=== PATIENT | male | born 1945 | race Caucasian/White ===

== ENCOUNTER 2016-11-23 09:07 | Inpatient (IN) ==
--- NOTE | 2016-11-23 09:32 | EKG Report ---
Stationary ECG Study [facility] ER Test Date: 11/23/2016 9:26:32 AM Pat Name: GRACE VEGA Department: Room: Gender: M [employer]: : 1945 Requested by: Tyrel Driscoll Order Number: [id number] Reading MD: ROSELYN ORTEGA Intervals Corn Rate: 118 P: 69 AK: 240 QRS: 247 QRSD: 178 T: 67 QT: 399 QTc: 469 Interpretive Statements ELECTRONIC VEN[employer]ICULAR PACEMAKER Electronically Signed On 11-23-16 10:48:03 CDT by ROSELYN ORTEGA [email or web address]
[2016-11-23 09:56] LABS: Basophils # 0.1 10*3/uL (0.0-0.2); Basophils % 0.7 % (0.0-0.8); Eosinophils % 0.6 % (0.00-10.9); Hematocrit 55.9 VOL% (42.0-52.0); Hemoglobin 18.9 GM/DL (14.0-18.0); Immature Granulocytes % 0.3 %; Immature Granulocytes Absolute 0.02 #; Lymphocytes # 1.8 10*3/uL (1.4-4.0); Lymphocytes % 27.2 % (21.2-54.2); Mean Corpuscular HGB Conc 33.8 GM/DL (32-36); Mean Corpuscular Hemoglobin 31 PG (27-34); Mean Corpuscular Volume 90.6 FL (87-102); Monocytes # 0.4 10*3/uL (0.11-0.8); Monocytes % 6.4 % (1.7-12.7); Neutrophils # 4.4 10*3/uL (1.4-7.4); Neutrophils % 64.8 % (38.7-73.9); Platelet Count 221 T/CUMM (130-400); Red Blood Count 6.17 MC/CUMM (3.8-5.5); Red Cell Distribution Width 13.4 % (9.3-17.3); White Blood Count 6.8 T/CUMM (4-12)
[2016-11-23 10:04] LABS: INR 2.7
[2016-11-23] MEDS ORDERED: SODIUM CHLORIDE 0.9% 500 ML IV STA (10:05)
--- NOTE | 2016-11-23 10:07 | XRay Report ---
Portable chest Date: 11/23/2016 Clinical history: Shortness of breath Comparison: 07/30/2016 Technique: Portable AP sitting chest Findings: The heart is borderline in size with prior median sternotomy. Stable left subclavian atrioventricular permanent pacemaker. Chronic scarring in the lungs with reduced parenchymal findings. Calcified granulomata/nodes with degenerative changes. Prior multilevel kyphoplasty. Impression: Status post median sternotomy with chronic scarring. Left subclavian atrioventricular permanent pacemaker. Reduced parenchymal findings with evidence of old healed granulomatous disease. No acute cardiopulmonary pathology. Multilevel kyphoplasty. PROCEDURE INTERPRETED AT [facility] DEPARTMENT OF RADIOLOGY Final Report Signed by: Dr. Iram Benitez
[2016-11-23 10:10] LABS: PT Patient Result 30.8 SECS
[2016-11-23 10:40] LABS: Bilirubin,Total 0.8 MG/DL (0.2-1.0); Calcium 10.1 MG/DL (8.5-10.1); Osmolality,Calculated 277.5 MOS/KG (273-304); Potassium 4.4 MMOL/L (3.5-5.1); Thyroid Stimulating Hormone 0.933 uIU/ml (0.358-3.74); Total Protein 7.8 G/DL (6.4-8.3); Troponin I Only 0.048 NG/ML (0.00-0.045)
--- NOTE | 2016-11-23 11:28 | Emergency Department Note ---
Jono Waite Brittany, am scribing for, and in the presence of, Rosalio Salcido MD 09:35. Omari Waite Doug C, MD, personally performed the services described in this documentation, ascribed by Yarelis De La Cruz in my presence, and it is both accurate and complete . Arrival - Arrival Chief Complaint: Arrhythmia/Palpitations Stated Complaint: SHOULDER AND BACK PROBLEMS AND HEART SWEATS CHILLS ED Nursing Triage Note: Elevated HR with HX of A fib - pt reports that he has also been having chills and body aches Mode of Arrival: Wheelchair Limitations: No Limitations Source: Patient, RN Notes Reviewed Time Seen by Provider: 11/23/16 09:21 - History of Present Illness HPI Narrative: Patient 68-year-old white male who comes to the emergency room complaining of tachycardia. Patient states this started yesterday though has had off and on for some time now. Patient states became persistent yesterday evening and is having some heaviness in his shoulders. He denies any chest pain but he did become diaphoretic. He denied any associated nausea, vomiting or severe shortness of breath. Patient states she has had similar symptoms in the past when he was having a myocardial infarction. He denies radiation of pain to his neck or his arms. He has had atrial fibrillation in the past and has had prior bypass surgery. Onset (ago): day(s) (1) Consistency: constant Allergies/Adverse Reactions: Allergies Allergy/AdvReac Type Severity Reaction Status Date / Time acetaminophen [From Lortab] AdvReac Anxiety Verified 01/19/15 12:50 aspirin AdvReac Gastrointestinal Verified 01/19/15 12:50 Upset duloxetine [From Cymbalta] AdvReac Agitated Verified 11/10/16 08:28 hydrocodone [From Lortab] AdvReac Anxiety Verified 01/19/15 12:50 NSAIDS (Non-Steroidal AdvReac Gastrointestinal Verified 01/19/15 12:50 Anti-Inflamma Upset Zolpidem [From Ambien] AdvReac Anxiety Verified 01/19/15 12:50 Home Medications: Home Medications Medication Instructions Recorded Confirmed Type Amitriptyline HCl 150 mg PO QPM 07/28/16 11/23/16 History Clopidogrel [Plavix] 75 mg PO DAILY@1830 07/28/16 11/23/16 History Digoxin [Digitek] 0.125 mcg PO DAILY@1230 07/28/16 11/23/16 History Oxycodone HCl/Acetaminophen 1 each PO QID PRN 07/28/16 11/23/16 History [Oxycodone-Acetaminophen 10-325] Sotalol [Betapace] 160 mg PO BID@0630,1830 07/28/16 11/23/16 History Warfarin Sodium 2.5 mg PO MO 07/28/16 11/23/16 History Warfarin Sodium 5 mg PO DAILY 07/28/16 11/23/16 History dilTIAZem HCl [Cartia XT] 240 mg PO DAILY@1230 07/28/16 11/23/16 History Methocarbamol 500 mg PO TID PRN 11/23/16 11/23/16 History Nystatin [Nystatin Oral Susp] 500,000 unit SWISH/SWAL QID 11/23/16 11/23/16 History Review of System - Review of System 12 point system: reviewed and no additional remarkable complaints except as stated - Review of System Constitutional: Present: chills, diaphoresis Eyes: Absent: vision change Head/Ears/Nose/Throat: Absent: nasal drainage, sore throat Respiratory: Absent: respiratory distress Cardiovascular: Present: other (elevated heart rate). Absent: chest pain Gastrointestinal: Absent: abdominal pain, nausea, vomiting, diarrhea, constipation Genitourinary male: Absent: urgency, dysuria, frequency Musculoskeletal: Present: other (shoulder pain). Absent: arm pain, back pain, leg pain, neck pain Skin: Absent: rash Neurological: Absent: headache Psychiatric: Absent: anxiety, depression Hematological/Lymphatic: Absent: easy bleeding, easy bruising Medical,Surgical,& Family Hx - Medical History Cardio: History of: Cardiac Dysrhythmia (Afib), Hypertension, [place], Pacemaker Neurology: No history of: Seizures Musculoskeletal: History of: Back/Neck Problems (kyphoplasty done previously) - Surgical History Cardiac Surgeries: Sugical HX of: Cardiac Surgery (CABG) Orthopedic Surgeries: Surgical HX of;: Total Knee Replacement (right) - Family History Family History: Reports;: Family Heart Disease (Mother had Pacemaker placement) - Social History Smoking Status: Former smoker Frequency of Alcohol Use: None Type of Drug Use: None Marital Status: Lives With:: Spouse Functional capacity: independent ambulation Exam Vital Signs: Vital Signs Temperature 97.9 F 11/23/16 09:56 Pulse Rate 118 H 11/23/16 09:56 Respiratory Rate 20 11/23/16 09:56 Blood Pressure 90/62 11/23/16 09:56 O2 Sat by Pulse Oximetry 97 11/23/16 09:15 - General General appearance: alert, in no apparent distress - Head Head exam: Present: atraumatic, normocephalic, normal inspection - Eye Eye exam: Present: normal appearance, PERRL, EOMI - ENT ENT exam: Present: normal exam, normal oropharynx - Neck Neck exam: Present: normal inspection, full ROM, trachea midline - Chest Chest inspection: Present: normal inspection, symmetric chest wall rise - Respiratory Respiratory exam: Present: normal lung sounds bilaterally - Cardiovascular Cardiovascular exam: Present: regular rate, irregular rhythm, normal heart sounds. Absent: normal rhythm - Abdominal Exam Abdominal exam: Present: soft, normal bowel sounds. Absent: distention, tenderness - Extremities Exam Extremities exam: Present: normal inspection. Absent: pedal edema - Back Exam Back exam: Present: normal inspection - Neurological Exam Neurological exam: Present: alert, oriented X3, CN II-XII intact. Absent: motor sensory deficit - Psychiatric Psychiatric exam: Present: normal affect, normal mood - Skin Skin exam: Present: warm, dry. Absent: diaphoresis Course Course Narrative: Patient's clinical presentation, laboratory and radiographic findings were discussed with Dr. Niki Gabriel. He will see the patient here in the emergency room and evaluate patient for admission. Results - Labs CBC & BMP: 11/23/16 09:35 11/23/16 09:35 Lab Results: I have reviewed the patients labs Labs: Laboratory Tests 11/23/16 09:35 WBC 6.8 RBC 6.17 H Hgb 18.9 H Hct 55.9 H Plt Count 221 Laboratory Tests 11/23/16 09:35 INR 2.7 PT Patient/Control Mix 30.8 D Laboratory Tests 11/23/16 11/23/16 09:35 09:35 Sodium 139 Potassium 4.4 Chloride 104 Carbon Dioxide 30 Anion Gap 9.4 BUN 15 Creatinine 1.30 GFR Calculation 65 BUN/Creatinine Ratio 11.00 Glucose 94 Calculated Osmolality 277.5 Calcium 10.1 Magnesium 2.6 H Total Bilirubin 0.80 AST 22 ALT 40 Alkaline Phosphatase 88 Troponin I 0.048 H Total Protein 7.8 Albumin 4.0 Globulin 3.8 H Albumin/Globulin Ratio 1.0 L TSH 3rd Generation 0.933 - EKG EKG results: interpreted by [facility] EKG shows: tachycardia (Paced rhythm at 118 bpm) - Diagnostic Findings Procedure: Chest x-ray: report reviewed by me (Status post median sternotomy with chronic scarring. Left subclavian atrioventricular permanent pacemaker. Reduced parenchymal findings with evidence of old healed granulomatous disease. No acute cardiopulmonary pathology. Multilevel kyphoplasty.) Disposition Clinical Impression: Chest pain Case discussed with: patient Disposition: Still a Patient Condition: Guarded Time of Disposition: 11:28
[2016-11-23] MEDS ORDERED: MORPHINE 2 MG/1 ML SYRINGE IV PRN (11:29)
[2016-11-23] MEDS ORDERED: ONDANSETRON 4 MG/2 ML VIAL IV PRN (11:29)
[2016-11-23] MEDS ORDERED: ZALEPLON 5 MG CAPSULE PO PRN (11:29)
--- NOTE | 2016-11-23 11:36 | Cardiology History & Physical ---
Assessment and Plan - Time spent with patient Time spent with patient: Greater than 30 minutes (Examination, chart review documentation and orders) (1) Dehydration Status: Acute Assessment and plan: I think volume contraction is the problem. Volume contraction is not an option in his electronic health record therefore I was forced to provide supply the wrong diagnosis of dehydration. Only option electronic health record is volume contraction by diuretics and that is not the diagnosis. The patient appears to be volume contracted by exam and by labs. He has been having excess sweating which I think is due to withdrawal from his medications. We will put in the ICU because of his A. fib with RVR and his elevated heart rate he has discomfort in his shoulders that I do not think represents ischemia but certainly could therefore we will monitor in the ICU because of his hypotension his pressures in the 90s. Hopefully with volume expansion he will respond and do well. He has a mildly elevated troponin and we will follow those serially. Current Visit: Yes (2) Atrial fibrillation with RVR Status: Acute Current Visit: Yes (3) Benzodiazepine withdrawal Status: Acute Current Visit: Yes Qualifiers: Complication of substance-induced condition: with unspecified complication Qualified Code(s): F13.239 - Sedative, hypnotic or anxiolytic dependence with withdrawal, unspecified (4) Chronic pain Status: Chronic Current Visit: Yes Qualifiers: Chronic pain type: chronic pain syndrome Qualified Code(s): G89.4 - Chronic pain syndrome (5) Coronary artery disease Status: Chronic Current Visit: Yes Qualifiers: Coronary Disease-Associated Artery/Lesion type: bypass graft [place] vs. transplanted heart: [place] heart Associated angina: without angina Qualified Code(s): I25.810 - Atherosclerosis of coronary artery bypass graft(s) without angina pectoris (6) Chronic anticoagulation Status: Chronic Current Visit: Yes History of Present Illness Chief complaint: Shoulder heaviness, sweating and A. fib with RVR (chronic) History of present illness: Mr. Cabral is a 70 year old male who has lots of chronic back pain and is recently had some issues with back pain and the significant adjustments in his medications with some being held specifically the increase in his Elavil and abrupt cessation of his Klonopin. The patient's called me earlier this morning stating that he was "sweating" constantly and had A. fib with RVR that was bouncing around and she was unable to control. She states the right is been as high as 130 she did not over the phone that he had chest pain. He has coronary artery disease therefore I was concerned that he may be having underlying ischemia and recommended they come to the emergency room. He came to the emergency room was evaluated by Dr. Rosalio Salcido and was found to have silva zone troponin and A. fib with rapid ventricular response with no diagnostic EKG changes. He also appears to be extremely volume contracted with a low blood pressure and A. fib with RVR rates in the 120s-130s. I discussed with Dr. Salcido via the phone and came to evaluate the patient. During the examination the consistently answered the questions for the patient stating that "he does not know what is going on." She states that he started getting sick after a back injection by Dr. Sherman approximately 5 weeks ago and his medications were adjusted he is also sometime in the interim this not clear to me had abrupt cessation of his Klonopin. He has had A. fib with RVR since but has had permanent A. fib. Rates have been going up and down he says he felt bad all day Thursday he had "a good day." And then yesterday and today he just feels weak and washed out with high heart rate. He has not experienced any chest pain but has had a heaviness in both shoulders that he states gets better whenever he takes skeletal muscle relaxants. He has not taken a nitroglycerin. He has not experienced chest pain nausea. He has had extreme diaphoresis states that he gets ringing wet and then went out of the air conditioner he is freezing. He denies any fevers or chills except when wet and under the air conditioner. Home Medications Medication Instructions Recorded Confirmed Type Amitriptyline HCl 150 mg PO QPM 07/28/16 11/23/16 History Clopidogrel [Plavix] 75 mg PO DAILY@182907/28/16 11/23/16 History Digoxin [Digitek] 0.125 mcg PO DAILY@1230 07/28/16 11/23/16 History Oxycodone HCl/Acetaminophen 1 each PO QID PRN 07/28/16 11/23/16 History [Oxycodone-Acetaminophen 10-325] Sotalol [Betapace] 160 mg PO BID@0630,182907/28/16 11/23/16 History Warfarin Sodium 2.5 mg PO MO 07/28/16 11/23/16 History Warfarin Sodium 5 mg PO DAILY 07/28/16 11/23/16 History dilTIAZem HCl [Cartia XT] 240 mg PO DAILY@1230 07/28/16 11/23/16 History Methocarbamol 500 mg PO TID PRN 11/23/16 11/23/16 History Nystatin [Nystatin Oral Susp] 500,000 unit SWISH/SWAL QID 11/23/16 11/23/16 History Allergies Allergy/AdvReac Type Severity Reaction Status Date / Time acetaminophen [From Lortab] AdvReac Anxiety Verified 01/19/15 12:50 aspirin AdvReac Gastrointestinal Verified 01/19/15 12:50 Upset duloxetine [From Cymbalta] AdvReac Agitated Verified 11/10/16 08:28 hydrocodone [From Lortab] AdvReac Anxiety Verified 01/19/15 12:50 NSAIDS (Non-Steroidal AdvReac Gastrointestinal Verified 01/19/15 12:50 Anti-Inflamma Upset Zolpidem [From Ambien] AdvReac Anxiety Verified 01/19/15 12:50 - Constitutional Constitutional: Present: daytime sleepiness, excessive sweating, fatigue, lethargy, malaise, night sweats, weakness. Absent: anorexia, chills - EENT Eyes: Absent: blurry vision, diplopia Ears: Absent: decreased hearing, ear discharge Nose, mouth and throat: Absent: dysphagia, epistaxis, headache(s), hoarseness, lip swelling, nasal congestion, neck mass, neck pain, sinus pressure, sore throat - Cardiovascular Cardiovascular: Present: as per HPI, dyspnea, dyspnea on exertion, lightheadedness, palpitations. Absent: chest pain at rest, chest pain with activity, edema, orthopnea - Respiratory Respiratory: Present: dyspnea, dyspnea on exertion. Absent: cough, wheezing, snoring, change in phlegm color - Gastrointestinal Gastrointestinal: Absent: abdominal pain, bloating, change in bowel habits, dyspepsia, dysphagia, fecal incontinence, melena, nausea, vomiting, jaundice - Genitourinary Genitourinary: Absent: difficulty urinating, dysuria, flank pain, hematuria, nocturia, scrotal swelling, testicular pain - Musculoskeletal Musculoskeletal: Present: arthralgias, back pain, muscle weakness. Absent: joint swelling, limited range of motion - Neurological Neurological: Absent: abnormal gait, abnormal speech, confusion, convulsions, disequilibrium, dizziness, frequent falls, headache(s), numbness, syncope, tremor(s) - Psychiatric Psychiatric: Present: anxiety, depression. Absent: difficulty concentrating, homicidal ideation - Endocrine Endocrine: Present: heat intolerance. Absent: cold intolerance Medical,Surgical,& Family Hx - Medical History Cardio: History of: Cardiac Dysrhythmia (Afib), Hypertension, [place], Pacemaker Neurology: No history of: Seizures Musculoskeletal: History of: Back/Neck Problems (kyphoplasty done previously) - Surgical History Cardiac Surgeries: Sugical HX of: Cardiac Surgery (CABG) Orthopedic Surgeries: Surgical HX of;: Total Knee Replacement (right) - Family History Family History: Reports;: Family Heart Disease (Mother had Pacemaker placement) - Social History Smoking Status: Former smoker Frequency of Alcohol Use: None Type of Drug Use: None Marital Status: Lives With:: Spouse Functional capacity: independent ambulation Cardiology Physical Exam - Constitutional Vitals: Vital Signs Temp Pulse Resp BP Pulse Ox 97.9 F 118 H 20 90/62 97 11/23/16 09:56 11/23/16 09:56 11/23/16 09:56 11/23/16 09:56 11/23/16 09:15 Intake and Output 11/22/16 11/23/16 11/23/16 23:59 07:59 15:59 Other: Weight 77.564 kg Patient Weight 11/23/16 23:59 Weight 77.564 kg General appearance: normal weight, other (He is anxious) - Head Head exam: Present: normal inspection - Eye Eye exam: Present: EOMI - ENT ENT exam: Present: other (His membranes are extremely dry he does not have JVD) - Neck Neck exam: Present: normal inspection - Respiratory Respiratory exam: Present: clear to auscultation bilaterally - Cardiovascular Cardiovascular exam: Present: irregular rhythm (Rates about 120), tachycardia - GI/Abdominal GI/Abdominal exam: Present: normal bowel sounds - Extremities Exam Extremities exam: Present: normal inspection - Back Exam Back exam: Present: normal inspection - Neurological Exam Neurological exam: Present: alert, oriented X3, CN II-XII intact, other (He has point tenderness over T6-7 but his states his kyphoplasty was lower. The spine has good movement. There is no fluctuance or erythema) - Psychiatric Psychiatric exam: Present: anxious, depressed - Skin Skin exam: Present: normal color, warm, dry Result/EKG - Labs CBC & BMP: 11/23/16 09:35 11/23/16 09:35 Labs: Laboratory Results - last 24 hr 11/23/16 11/23/16 11/23/16 09:35 09:35 09:35 WBC 6.8 RBC 6.17 H Hgb 18.9 H Hct 55.9 H MCV 90.6 MCH 31 MCHC 33.8 RDW 13.4 Plt Count 221 MPV 11.0 Neut % (Auto) 64.8 Lymph % (Auto) 27.2 [place] % (Auto) 6.4 Eos % (Auto) 0.6 Baso % (Auto) 0.7 Neut # (Auto) 4.4 Lymph # (Auto) 1.8 [place] # (Auto) 0.4 Eos # (Auto) 0.0 Baso # (Auto) 0.1 Immature Gran % 0.3 Nucleated RBC % 0.0 Immature Gran # 0.02 Nucleated RBCs # 0.00 INR 2.7 PT Patient/Control Mix 30.8 D Sodium Potassium Chloride Carbon Dioxide Anion Gap BUN Creatinine GFR Calculation BUN/Creatinine Ratio Glucose Calculated Osmolality Calcium Magnesium 2.6 H Total Bilirubin AST ALT Alkaline Phosphatase Troponin I Total Protein Albumin Globulin Albumin/Globulin Ratio TSH 3rd Generation 11/23/16 09:35 WBC RBC Hgb Hct MCV MCH MCHC RDW Plt Count MPV Neut % (Auto) Lymph % (Auto) [place] % (Auto) Eos % (Auto) Baso % (Auto) Neut # (Auto) Lymph # (Auto) [place] # (Auto) Eos # (Auto) Baso # (Auto) Immature Gran % Nucleated RBC % Immature Gran # Nucleated RBCs # INR PT Patient/Control Mix Sodium 139 Potassium 4.4 Chloride 104 Carbon Dioxide 30 Anion Gap 9.4 BUN 15 Creatinine 1.30 GFR Calculation 65 BUN/Creatinine Ratio 11.00 Glucose 94 Calculated Osmolality 277.5 Calcium 10.1 Magnesium Total Bilirubin 0.80 AST 22 ALT 40 Alkaline Phosphatase 88 Troponin I 0.048 H Total Protein 7.8 Albumin 4.0 Globulin 3.8 H Albumin/Globulin Ratio 1.0 L TSH 3rd Generation 0.933 - EKG EKG results: interpreted by me (Ventricular paced rhythm) Quality Measures - VTE Contraindication to Pharmacological VTE Prophylaxis: Already on Theraputic Agent , No Prophylaxis Needed
[2016-11-23] MEDS: DILTIAZEM CD 240 MG CAPSULE PO SCH (12:55)
[2016-11-23] MEDS: DIGOXIN 0.125 MG TABLET PO SCH (12:56)
[2016-11-23] MEDS: oxyCODONE/ACETAMINOPHEN 5-325 MG TABLET PO PRN (12:56)
[2016-11-23] MEDS: SODIUM CHLORIDE 0.9% 1,000 ML IV SCH ×2 (12:59→20:51)
[2016-11-23] MEDS: NYSTATIN 500,000 UNIT/5 ML UDCUP SWISH/SWAL SCH ×3 (13:08→21:59)
[2016-11-23] MEDS: CLOPIDOGREL 75 MG TABLET PO SCH (19:38)
[2016-11-23] MEDS: SOTALOL 80 MG TABLET PO SCH (19:38)
[2016-11-23] MEDS: AMITRIPTYLINE 50 MG TABLET PO SCH (20:48)
[2016-11-23] MEDS: clonazePAM 0.5 MG TABLET PO SCH (21:58)
[2016-11-24] MEDS: oxyCODONE/ACETAMINOPHEN 5-325 MG TABLET PO PRN ×3 (00:04→17:59)
[2016-11-24 01:22] LABS: Apearance,Urine CLEAR (Clear); Bilirubin,Urine Negative (Negative); Blood, Urine Small mg/dL (Negative); Glucose,Urine (UA) Negative (Negative); Ketones,Urine Negative (Negative); Mucus,Urine Occasional /LPF (Occasional); Nitrite,Urine Negative (Negative); Protein,Urine Negative; RBC,Urine 15 /HPF (0-4); Urine Color Yellow (Yellow); Urine Specific Gravity 1.018 (1.001-1.035); Urine Urobilinogen < 2.0 EU/DL (0.2-1.0); WBC,Urine <1 /HPF (0-6)
[2016-11-24] MEDS: SODIUM CHLORIDE 0.9% 1,000 ML IV SCH ×3 (04:51→21:36)
[2016-11-24 05:21] LABS: Basophils # 0.1 10*3/uL (0.0-0.2); Basophils % 0.7 % (0.0-0.8); Eosinophils # 0.1 10*3/uL (0.0-0.87); Eosinophils % 1.1 % (0.00-10.9); Hematocrit 48.1 VOL% (42.0-52.0); Immature Granulocytes % 0.3 %; Immature Granulocytes Absolute 0.02 #; Lymphocytes # 2.2 10*3/uL (1.4-4.0); Lymphocytes % 28.9 % (21.2-54.2); Mean Corpuscular HGB Conc 33.7 GM/DL (32-36); Mean Corpuscular Hemoglobin 31 PG (27-34); Mean Corpuscular Volume 91.8 FL (87-102); Mean Platelet Volume 11.3 FL (9.6-12.0); Monocytes # 0.6 10*3/uL (0.11-0.8); Monocytes % 7.8 % (1.7-12.7); Neutrophils # 4.6 10*3/uL (1.4-7.4); Neutrophils % 61.2 % (38.7-73.9); Red Blood Count 5.24 MC/CUMM (3.8-5.5); Red Cell Distribution Width 13.2 % (9.3-17.3); White Blood Count 7.4 T/CUMM (4-12)
[2016-11-24 05:45] LABS: Hemoglobin 16.2 GM/DL (14.0-18.0)
[2016-11-24 05:46] LABS: Platelet Count 172 T/CUMM (130-400)
[2016-11-24 05:48] LABS: Calcium 8.6 MG/DL (8.5-10.1); Osmolality,Calculated 283.1 MOS/KG (273-304)
[2016-11-24] MEDS: SOTALOL 80 MG TABLET PO SCH ×2 (06:30→17:57)
--- NOTE | 2016-11-24 08:05 | Cardiology Progress Note ---
Cardiology - PN: Subj Interval history: Cardiology note 70-year-old man admitted with recurrent paroxysmal atrial relation, dehydration and chronic back pain with probable overmedication. Patient had been taking Klonopin 4 times daily. Awake and alert and comfortable this morning telemetry shows atrial fib ventricular rate 90-100 O2 sat 95% on 2 L cannula Blood pressure 130/82 Decreased breath sounds but clear Irregular rhythm no murmur Abdomen soft No leg edema Lab data White count 7.4 hemoglobin 16.2 hematocrit 48.1 Sodium 142 potassium 4.0 chloride 109 CO2 26 BUN down to 14 creatinine down to 1.0 Pro time 30.8 INR 2.7 Impression Recurrent paroxysmal atrial fibrillation Dehydration Chronic back pain Overmedication CAD Chronic anticoagulation Plan Transfer to telemetry Sotalol 160 mg twice daily Diltiazem 240 mg daily and digoxin 0.125 mg daily Warfarin daily 500 mg 3 times daily methocarbamol Normal saline hydration Cardioversion if he does not convert chemically Findings and plan discussed with patient and his Exam (Progress Note) - Constitutional Vitals: Period Temp Pulse Resp BP Sys/Parker Pulse Ox Last 24 Hr 97 F-97.9 F 100-127 12-26 88-129/49-93 94-100 Result/EKG - Labs CBC & BMP: 11/24/16 04:13 11/24/16 04:13 Labs: Laboratory Results - last 24 hr 11/23/16 11/23/16 11/23/16 09:35 09:35 09:35 WBC 6.8 RBC 6.17 H Hgb 18.9 H Hct 55.9 H MCV 90.6 MCH 31 MCHC 33.8 RDW 13.4 Plt Count 221 MPV 11.0 Neut % (Auto) 64.8 Lymph % (Auto) 27.2 Cavalier % (Auto) 6.4 Eos % (Auto) 0.6 Baso % (Auto) 0.7 Neut # (Auto) 4.4 Lymph # (Auto) 1.8 Cavalier # (Auto) 0.4 Eos # (Auto) 0.0 Baso # (Auto) 0.1 Immature Gran % 0.3 Nucleated RBC % 0.0 Immature Gran # 0.02 Nucleated RBCs # 0.00 INR 2.7 PT Patient/Control Mix 30.8 D Sodium Potassium Chloride Carbon Dioxide Anion Gap BUN Creatinine GFR Calculation BUN/Creatinine Ratio Glucose Calculated Osmolality Calcium Magnesium 2.6 H Total Bilirubin AST ALT Alkaline Phosphatase Troponin I Total Protein Albumin Globulin Albumin/Globulin Ratio TSH 3rd Generation Urine Color Urine Appearance Urine pH Ur Specific [place] Urine Protein Urine Glucose (UA) Urine Ketones Urine Blood Urine Nitrate Urine Bilirubin Urine Urobilinogen Urine Leukocytes Urine RBC Urine WBC Urine Mucus Ur Culture Indicated? 11/23/16 11/23/16 11/23/16 09:35 13:33 17:25 WBC RBC Hgb Hct MCV MCH MCHC RDW Plt Count MPV Neut % (Auto) Lymph % (Auto) [place]ier % (Auto) Eos % (Auto) Baso % (Auto) Neut # (Auto) Lymph # (Auto) [place]ier # (Auto) Eos # (Auto) Baso # (Auto) Immature Gran % Nucleated RBC % Immature Gran # Nucleated RBCs # INR PT Patient/Control Mix Sodium 139 Potassium 4.4 Chloride 104 Carbon Dioxide 30 Anion Gap 9.4 BUN 15 Creatinine 1.30 GFR Calculation 65 BUN/Creatinine Ratio 11.00 Glucose 94 Calculated Osmolality 277.5 Calcium 10.1 Magnesium Total Bilirubin 0.80 AST 22 ALT 40 Alkaline Phosphatase 88 Troponin I 0.048 H 0.049 H 0.049 H Total Protein 7.8 Albumin 4.0 Globulin 3.8 H Albumin/Globulin Ratio 1.0 L TSH 3rd Generation 0.933 Urine Color Urine Appearance Urine pH Ur Specific [place] Urine Protein Urine Glucose (UA) Urine Ketones Urine Blood Urine Nitrate Urine Bilirubin Urine Urobilinogen Urine Leukocytes Urine RBC Urine WBC Urine Mucus Ur Culture Indicated? 11/23/16 11/24/16 11/24/16 19:32 00:00 04:13 WBC 7.4 RBC 5.24 Hgb 16.2 D Hct 48.1 MCV 91.8 MCH 31 MCHC 33.7 RDW 13.2 Plt Count 172 D MPV 11.3 Neut % (Auto) 61.2 Lymph % (Auto) 28.9 Cavalier % (Auto) 7.8 Eos % (Auto) 1.1 Baso % (Auto) 0.7 Neut # (Auto) 4.6 Lymph # (Auto) 2.2 Cav[place]ier # (Auto) 0.6 Eos # (Auto) 0.1 Baso # (Auto) 0.1 Immature Gran % 0.3 Nucleated RBC % 0.0 Immature Gran # 0.02 Nucleated RBCs # 0.00 INR PT Patient/Control Mix Sodium Potassium Chloride Carbon Dioxide Anion Gap BUN Creatinine GFR Calculation BUN/Creatinine Ratio Glucose Calculated Osmolality Calcium Magnesium Total Bilirubin AST ALT Alkaline Phosphatase Troponin I 0.053 H Total Protein Albumin Globulin Albumin/Globulin Ratio TSH 3rd Generation Urine Color Yellow Urine Appearance Clear Urine pH 5.0 Ur Specific [place] 1.018 Urine Protein Negative Urine Glucose (UA) Negative Urine Ketones Negative Urine Blood Small Urine Nitrate Negative Urine Bilirubin Negative Urine Urobilinogen < 2.0 H Urine Leukocytes Negative Urine RBC 15 Urine WBC <1 Urine Mucus Occasional Ur Culture Indicated? Results to follow 11/24/16 04:13 WBC RBC Hgb Hct MCV MCH MCHC RDW Plt Count MPV Neut % (Auto) Lymph % (Auto) [place]ier % (Auto) Eos % (Auto) Baso % (Auto) Neut # (Auto) Lymph # (Auto) [place]ier # (Auto) Eos # (Auto) Baso # (Auto) Immature Gran % Nucleated RBC % Immature Gran # Nucleated RBCs # INR PT Patient/Control Mix Sodium 142 Potassium 4.0 Chloride 109 H Carbon Dioxide 26 Anion Gap 11.0 BUN 14 Creatinine 1.00 GFR Calculation 88 BUN/Creatinine Ratio 14.00 Glucose 91 Calculated Osmolality 283.1 Calcium 8.6 Magnesium Total Bilirubin AST ALT Alkaline Phosphatase Troponin I Total Protein Albumin Globulin Albumin/Globulin Ratio TSH 3rd Generation Urine Color Urine Appearance Urine pH Ur Specific [place] Urine Protein Urine Glucose (UA) Urine Ketones Urine Blood Urine Nitrate Urine Bilirubin Urine Urobilinogen Urine Leukocytes Urine RBC Urine WBC Urine Mucus Ur Culture Indicated? Quality Measures - VTE Contraindication to Pharmacological VTE Prophylaxis: Already on Theraputic Agent , No Prophylaxis Needed
[2016-11-24] MEDS: METHOCARBAMOL 500 MG TABLET PO PRN (09:10)
[2016-11-24] MEDS: NYSTATIN 500,000 UNIT/5 ML UDCUP SWISH/SWAL SCH ×4 (09:10→21:42)
[2016-11-24] MEDS: clonazePAM 0.5 MG TABLET PO SCH ×2 (09:11→21:41)
[2016-11-24] MEDS: WARFARIN 5 MG TABLET PO SCH (09:12)
--- NOTE | 2016-11-24 09:42 | XRay Report ---
Exam: XR chest 1V portable Date: 11/24/2016 4:00 AM Indication: Shortness of breath Comparison: 11/23/2016 Technical: AP portable Findings: Cardiomegaly present with sternotomy wires and cardiac pacer device and a left-sided approach with atrial ventricular leads. External cardiac leads are present. Platelike atelectatic change present in the right base with a small area of nodularity in the left base and some atelectatic change present. Previous vertebral plasty at the thoracolumbar junction. No pneumothorax Impression: 1. Cardiomegaly without decompensation 2. Bibasilar atelectatic change and small some nodularity in the left base 3. Stable persistent cardiac pacing device and previous sternotomy PROCEDURE INTERPRETED AT [facility] DEPARTMENT OF RADIOLOGY Final Report Signed by: Dr. Marcus Patiño
[2016-11-24] MEDS ORDERED: WARFARIN 2.5 MG TABLET PO SCH (11:31)
[2016-11-24] MEDS: DIGOXIN 0.125 MG TABLET PO SCH (11:59)
[2016-11-24] MEDS: DILTIAZEM CD 240 MG CAPSULE PO SCH (12:02)
[2016-11-24] MEDS: CLOPIDOGREL 75 MG TABLET PO SCH (17:58)
[2016-11-24] MEDS: AMITRIPTYLINE 50 MG TABLET PO SCH (18:34)
[2016-11-25] MEDS: oxyCODONE/ACETAMINOPHEN 5-325 MG TABLET PO PRN (02:00)
[2016-11-25] MEDS: METHOCARBAMOL 500 MG TABLET PO PRN (02:03)
[2016-11-25 05:50] LABS: Basophils # 0.1 10*3/uL (0.0-0.2); Basophils % 0.8 % (0.0-0.8); Eosinophils # 0.1 10*3/uL (0.0-0.87); Eosinophils % 2.3 % (0.00-10.9); Hematocrit 46.5 VOL% (42.0-52.0); Hemoglobin 15.8 GM/DL (14.0-18.0); Immature Granulocytes % 0.3 %; Immature Granulocytes Absolute 0.02 #; Lymphocytes # 2.2 10*3/uL (1.4-4.0); Lymphocytes % 35.8 % (21.2-54.2); Mean Corpuscular Hemoglobin 31 PG (27-34); Mean Corpuscular Volume 91.4 FL (87-102); Mean Platelet Volume 11.1 FL (9.6-12.0); Monocytes # 0.5 10*3/uL (0.11-0.8); Monocytes % 7.7 % (1.7-12.7); Neutrophils # 3.3 10*3/uL (1.4-7.4); Neutrophils % 53.1 % (38.7-73.9); Platelet Count 150 T/CUMM (130-400); Red Blood Count 5.09 MC/CUMM (3.8-5.5); Red Cell Distribution Width 13.1 % (9.3-17.3); White Blood Count 6.2 T/CUMM (4-12)
[2016-11-25 06:18] LABS: Calcium 8.6 MG/DL (8.5-10.1); Osmolality,Calculated 280.1 MOS/KG (273-304)
[2016-11-25 06:20] LABS: Calcium 8.6 MG/DL (8.5-10.1); Magnesium 2.1 MG/DL (1.8-2.4)
[2016-11-25] MEDS: SODIUM CHLORIDE 0.9% 1,000 ML IV SCH (06:22)
[2016-11-25] MEDS: SOTALOL 80 MG TABLET PO SCH (06:54)
[2016-11-25] MEDS: clonazePAM 0.5 MG TABLET PO SCH (08:32)
[2016-11-25] MEDS: WARFARIN 5 MG TABLET PO SCH (08:33)
[2016-11-25] MEDS: NYSTATIN 500,000 UNIT/5 ML UDCUP SWISH/SWAL SCH (08:33)
--- NOTE | 2016-11-25 09:31 | Cardiology Progress Note ---
Cardiology - PN: Subj Interval history: Cardiology note 70-year-old man admitted with dehydration overmedication with benzodiazepines and recurrent atrial fibrillation. Awake alert and feels much better today. Patient converted chemically back to atrial pacing. Blood pressure 126/80. O2 sat 96% on room air. Regular rhythm no gallop Clear lungs. Abdomen soft benign. No leg edema. Impression Dehydration Chronic back pain with analgesic requirement Recurrent paroxysmal atrial fibrillation converted chemically back to atrial pacing Chronic anticoagulation Status post dual-chamber pacemaker Benzodiazepine overmedication CAD Plan Home today Sotalol 160 mg twice daily Cardizem 240 mg daily and digoxin 0.125 mg daily Warfarin daily Office visit with EKG already scheduled with Dr. Hunt for November 28 Patient is followed by Dr. Sherman at the pain clinic and will need office visit with him soon. Findings and plan discussed with patient and with his Jonna. Exam (Progress Note) - Constitutional Vitals: Period Temp Pulse Resp BP Sys/Parker Pulse Ox Last 24 Hr 96.5 F-97.7 F 68-112 16-20 102-116/62-85 94-98 Result/EKG - Labs CBC & BMP: 11/25/16 05:26 11/25/16 05:26 Labs: Laboratory Results - last 24 hr 11/25/16 11/25/16 11/25/16 05:26 05:26 05:26 WBC 6.2 RBC 5.09 Hgb 15.8 Hct 46.5 MCV 91.4 MCH 31 MCHC 34.0 RDW 13.1 Plt Count 150 MPV 11.1 Neut % (Auto) 53.1 Lymph % (Auto) 35.8 Gregg % (Auto) 7.7 Eos % (Auto) 2.3 Baso % (Auto) 0.8 Neut # (Auto) 3.3 Lymph # (Auto) 2.2 [place]gg # (Auto) 0.5 Eos # (Auto) 0.1 Baso # (Auto) 0.1 Immature Gran % 0.3 Nucleated RBC % 0.0 Immature Gran # 0.02 Nucleated RBCs # 0.00 Sodium 143 142 Potassium 4.0 4.0 Chloride 110 H 110 H Carbon Dioxide 25 26 Anion Gap 12.0 10.0 BUN 10 10 Creatinine 0.80 0.80 GFR Calculation 106 106 BUN/Creatinine Ratio 12.00 12.00 Glucose 76 79 Calculated Osmolality 282.0 280.1 Calcium 8.6 8.6 Magnesium 2.1 Quality Measures - VTE Contraindication to Pharmacological VTE Prophylaxis: Already on Theraputic Agent , No Prophylaxis Needed
--- NOTE | 2016-11-25 10:03 | Discharge Summary ---
Hospital Course - Hospital Course Hospital Course: Outside Sales Account Representative: Dr. Philip Hunt PCP: Dr. Peña Mr. Cabral, 70-year-old male patient with a past medical history of chronic back pain, coronary artery disease, degenerative joint disease, diverticulosis, dyslipidemia, anxiety and paroxysmal atrial fibrillation (chronically anticoagulated with Coumadin). Status post cardiac pacemaker. Patient presented to [facility] November 23, 2016 with recurrent paroxysmal atrial fibrillation with rapid ventricular response, probable benzodiazepine withdrawal and silva zone troponin without diagnostic EKG changes. Patient without complaints of chest pain, heaviness and tightness. Patient has lots of chronic back pain and has recently been having issues. Therefore, significant adjustments in his medications were recently done. Specifically, his Elavil was increased and his Klonopin was abruptly discontinued. Per patient's report, he has been taking Klonopin 4 times daily. This hospitalization, patient's Klonopin was decreased to 0.25 mg p.o. twice daily. He will be given a written prescription for this in order to avoid withdrawal. I would defer further management of patient's anxiety to his primary care provider, Dr. Peña. Patient was admitted to the ICU as he was mildly hypotensive upon admission due to volume contraction. He was monitored in the ICU overnight and hydrated gently. He tolerated this well and subsequently was transferred up to telemetry unit in stable condition. No adjustments in his cardiac medications were needed as patient spontaneously converted back to normal sinus rhythm on his own. Currently, patient is atrial pacing, heart rates in the 60s. INR November 23 was noted to be therapeutic at 2.7. He will have his INR rechecked at his follow-up appointment with Dr. Hunt on November 28. Patient has been given a follow-up appointment with Dr. Hunt on November 28. At this appointment he will have the following completed: INR, BMP and EKG. Patient is anxious for discharge home. Having felt that he has not maximal medical therapy, he will be discharged home in stable condition per Of note, patient does have history of dyslipidemia. However, he is allergic to statins and Zetia. At this time, patient will not be discharged home with a lipid-lowering agent for this reason. I will defer further management of this to patient's primary arboriculture instructor, Dr. Hunt. Patient will be discharged home on his preadmission Coumadin dosages. He will have his INR rechecked Thursday afternoon at the [facility] [place] [facility] along with BMP and EKG. Patient verbalized understanding of discharge instructions and discharge medications. - Time spent with patient Time with patient DS: Greater than 30 minutes Diagnosis - Discharge Diagnosis (1) Paroxysmal atrial fibrillation Status: Chronic (2) Dyslipidemia Status: Chronic (3) Atrial fibrillation with RVR Status: Resolved (4) Benzodiazepine withdrawal Status: Acute (5) Dehydration Status: Resolved (6) Chronic anticoagulation Status: Chronic (7) Chronic pain Status: Chronic (8) Coronary artery disease Status: Chronic Specialty Discharge - Follow Up or Referrals Follow up with: Killian Sherman MD [Physician] - 11/28/16 7:45 am Madhu Hunt MD [Physician] - 11/28/16 9:40 am (With EKG, BMP and INR.) Luis Fernando Peña DO [Primary Care Provider] - 2 Weeks Discharge Plan - Discharge Data Disposition: Disch To Home/Self Care Condition at Discharge: Stable Discharge Diet: heart healthy Activity: resume usual activities as tolerated Hygiene: no restrictions Weight Bearing at Discharge: weight bear as tolerated Driving: not until seen by doctor Contact your physician if you experience:: fever over 101, Difficulty voiding, Redness or swelling, Nausea/Vomiting, Shortness of breath, Bleeding, pain uncontrolled by pain medications - Discharge Medications New clonazePAM TAB [KlonoPIN] 0.25 mg PO BID tablet Continue Warfarin Sodium 5 mg PO DAILY Digoxin [Digitek] 0.125 mcg PO DAILY@1230 dilTIAZem HCl [Cartia XT] 240 mg PO DAILY@1230 Clopidogrel [Plavix] 75 mg PO DAILY@1830 Amitriptyline HCl 150 mg PO QPM Oxycodone HCl/Acetaminophen [Oxycodone-Acetaminophen 10-325] 1 each PO QID PRN PRN Reason: Pain Warfarin Sodium 2.5 mg PO MO Methocarbamol 500 mg PO TID PRN PRN Reason: MUSCLE SPASMS Sotalol [Betapace] 160 mg PO BID@0630,1830 Nystatin [Nystatin Oral Susp] 500,000 unit SWISH/SWAL QID - Follow Up or Referral Follow Up: Killian Sherman MD [Physician] - 11/28/16 7:45 am Madhu Hunt MD [Physician] - 11/28/16 9:40 am - Forms/Instructions Exam - Constitutional Vitals: Period Temp Pulse Resp BP Sys/Parker Pulse Ox Last 24 Hr 96.5 F-97.7 F 68-112 16-20 102-116/62-85 94-98 Exam: General: Appears well with no apparent distress. Pleasant and cooperative. Appears comfortable. HEENT: PERRL, normocephalic, atraumatic. Mucous membranes moist. No jaundice noted. Conjunctiva moist and clear, sclerae anicteric Neck: No JVD/HJR, no thyromegaly or lymphadenopathy noted. No carotid bruit appreciated Cardiac: Regular rate and rhythm. No murmur rub or gallop. Lungs: Clear to auscultation without accessory muscle use to assist the respiratory pattern. Not requiring oxygen. Abdomen: Soft, bowel sounds normoactive. Nontender and nondistended. Extremities: No clubbing, cyanosis noted. No edema noted. Upper extremity pulses 2+. Lower extremity pulses 2+. Capillary refill less than 3 seconds. Skin: No unusual lesions or rashes. No skin breakdown appreciated. Neuro: Awake, alert and oriented 3. Moves all extremities well without hemiparesis or paralysis. No essential tremor is appreciated. Discharge Results Procedures and tests throughout hospitalization: Pending Orders 11/24/16 Urine Culture Routine 11/26/16 04:00 BMP w/ Mg [Basic Metabolic Panel w/Mg] IN AM CBC [Comp Blood Count Auto Diff] IN AM 11/27/16 04:00 BMP w/ Mg [Basic Metabolic Panel w/Mg] IN AM CBC [Comp Blood Count Auto Diff] IN AM 11/28/16 04:00 BMP w/ Mg [Basic Metabolic Panel w/Mg] IN AM CBC [Comp Blood Count Auto Diff] IN AM 11/29/16 04:00 CBC [Comp Blood Count Auto Diff] IN AM Labs on day of discharge: Labs from last 24 hours 11/25/16 11/25/16 11/25/16 05:26 05:26 05:26 WBC 6.2 RBC 5.09 Hgb 15.8 Hct 46.5 MCV 91.4 MCH 31 MCHC 34.0 RDW 13.1 Plt Count 150 MPV 11.1 Neut % (Auto) 53.1 Lymph % (Auto) 35.8 Glenn % (Auto) 7.7 Eos % (Auto) 2.3 Baso % (Auto) 0.8 Neut # (Auto) 3.3 Lymph # (Auto) 2.2 Glenn # (Auto) 0.5 Eos # (Auto) 0.1 Baso # (Auto) 0.1 Immature Gran % 0.3 Nucleated RBC % 0.0 Immature Gran # 0.02 Nucleated RBCs # 0.00 Sodium 142 143 Potassium 4.0 4.0 Chloride 110 H 110 H Carbon Dioxide 26 25 Anion Gap 10.0 12.0 BUN 10 10 Creatinine 0.80 0.80 GFR Calculation 106 106 BUN/Creatinine Ratio 12.00 12.00 Glucose 79 76 Calculated Osmolality 280.1 282.0 Calcium 8.6 8.6 Magnesium 2.1 Preliminary micro results at discharge 11/24/16 Unknown Urine Culture - Preliminary Urine,Catheterized No Growth at 24 hours. DS: Provider Date of admission: 11/23/16 11:29 Primary care physician: Luis Fernando Peña DO Attending physician on admission: Niki Gabriel DO Consults: 11/23/16 17:03 Consult to Dietitian [CONS] Routine Reason for Dietitian: Supplements and/or Snacks Discharging clinician: Mara Lagos NP Expected date of discharge: 11/25/16
[2016-11-25] MEDS ORDERED: SOTALOL 80 MG TABLET PO ONE (10:59)
[2016-11-25 11:31] VITALS: BP 142/96
== END 2016-11-25 12:52 | disposition home or self-care (01) | DRG 897 ==
LOC: N.ED 09:07 → N.EDINP 11:29 → N.CC 12:22 → N.TELES 11-24 10:33
PROVIDERS: ADMIT Internal Medicine Cardiovascular Disease; ATTEND Internal Medicine Cardiovascular Disease

== ENCOUNTER 2017-09-29 17:57 | Observation (INO) ==
[2017-09-29] MEDS ORDERED: DOCUSATE SODIUM 100 MG CAPSULE PO PRN ×2 (18:38→18:41)
[2017-09-29] MEDS ORDERED: ONDANSETRON 4 MG/2 ML VIAL IV PRN ×2 (18:38→18:41)
[2017-09-29] MEDS ORDERED: MAGNESIUM SULF RIDER 2 GM in PREMIX 1 EACH IV PRN ×2 (18:38→18:41)
[2017-09-29] MEDS ORDERED: ACETAMINOPHEN 325 MG TABLET PO PRN ×2 (18:38→18:41)
[2017-09-29] MEDS ORDERED: MAGNESIUM SULF RIDER 4 GM in PREMIX 1 EACH IV PRN ×2 (18:38→18:41)
[2017-09-29] MEDS ORDERED: ZALEPLON 5 MG CAPSULE PO PRN (18:41)
[2017-09-29] MEDS ORDERED: NITROGLYCERIN SL 0.4 MG TABLET SL PRN (18:47)
[2017-09-29] MEDS ORDERED: oxyCODONE/ACETAMINOPHEN 5-325 MG TABLET PO PRN (18:47)
[2017-09-29] MEDS ORDERED: MAGNESIUM HYDROXIDE SUSP 30 ML UDCUP PO PRN (18:53)
[2017-09-29] MEDS ORDERED: diphenhydrAMINE CAP 25 MG CAPSULE PO PRN (18:53)
[2017-09-29] MEDS ORDERED: NON-FORMULARY MEDICATION (Testosterone Enanthate [Testosterone Enanthate] 200 MG) IM SCH (19:00)
[2017-09-29 20:16] LABS: Basophils % 0.6 % (0.0-0.8); Eosinophils # 0.1 10*3/uL (0.0-0.87); Eosinophils % 1.8 % (0.00-10.9); Hematocrit 44.9 VOL% (42.0-52.0); Hemoglobin 14.8 GM/DL (14.0-18.0); Immature Granulocytes % 0.4 %; Immature Granulocytes Absolute 0.03 #; Lymphocytes # 1.7 10*3/uL (1.4-4.0); Lymphocytes % 24.4 % (21.2-54.2); Mean Corpuscular Hemoglobin 30 PG (27-34); Mean Corpuscular Volume 89.6 FL (87-102); Mean Platelet Volume 11.6 FL (9.6-12.0); Monocytes # 0.6 10*3/uL (0.11-0.8); Monocytes % 8.7 % (1.7-12.7); Neutrophils # 4.6 10*3/uL (1.4-7.4); Neutrophils % 64.1 % (38.7-73.9); Platelet Count 169 T/CUMM (130-400); Red Blood Count 5.01 MC/CUMM (3.8-5.5); Red Cell Distribution Width 13.6 % (9.3-17.3); White Blood Count 7.1 T/CUMM (4-12)
[2017-09-29 20:36] LABS: Calcium 9.4 MG/DL (8.5-10.1); Osmolality,Calculated 278.3 MOS/KG (273-304); Potassium 3.7 MMOL/L (3.5-5.1); Thyroid Stimulating Hormone 1.53 uIU/ml (0.358-3.74)
[2017-09-29 20:45] LABS: INR 3.9
[2017-09-29 20:47] LABS: PT Patient Result 39.1 SECS
[2017-09-29] MEDS ORDERED: AMITRIPTYLINE 75 MG TABLET PO SCH (21:00)
[2017-09-30 05:55] LABS: Basophils % 0.8 % (0.0-0.8); Eosinophils # 0.1 10*3/uL (0.0-0.87); Eosinophils % 1.9 % (0.00-10.9); Hematocrit 42.1 VOL% (42.0-52.0); Hemoglobin 13.7 GM/DL (14.0-18.0); Immature Granulocytes % 0.4 %; Immature Granulocytes Absolute 0.02 #; Lymphocytes # 1.4 10*3/uL (1.4-4.0); Lymphocytes % 26.2 % (21.2-54.2); Mean Corpuscular HGB Conc 32.5 GM/DL (32-36); Mean Corpuscular Hemoglobin 29 PG (27-34); Mean Platelet Volume 11.4 FL (9.6-12.0); Monocytes # 0.5 10*3/uL (0.11-0.8); Monocytes % 10.2 % (1.7-12.7); Neutrophils # 3.1 10*3/uL (1.4-7.4); Neutrophils % 60.5 % (38.7-73.9); Platelet Count 145 T/CUMM (130-400); Red Blood Count 4.73 MC/CUMM (3.8-5.5); Red Cell Distribution Width 13.6 % (9.3-17.3); White Blood Count 5.2 T/CUMM (4-12)
[2017-09-30 06:20] LABS: Albumin 3.2 G/DL (3.4-5.0); Bilirubin,Total 0.4 MG/DL (0.2-1.0); Calcium 8.8 MG/DL (8.5-10.1); Potassium 3.9 MMOL/L (3.5-5.1); Total Protein 6.1 G/DL (6.4-8.3)
[2017-09-30] MEDS ORDERED: SOTALOL 80 MG TABLET PO SCH (06:30)
[2017-09-30] MEDS ORDERED: DILTIAZEM CD 240 MG CAPSULE PO SCH (09:00)
[2017-09-30] MEDS ORDERED: PANTOPRAZOLE 40 MG TABLET PO SCH ×2 (09:00)
[2017-09-30 11:55] VITALS: BP 123/64
[2017-09-30] MEDS ORDERED: WARFARIN 5 MG TABLET PO SCH (18:00)
[2017-09-30] MEDS ORDERED: CLOPIDOGREL 75 MG TABLET PO SCH (18:30)
[2017-10-01] MEDS ORDERED: WARFARIN 5 MG TABLET PO SCH (18:00)
== END 2017-09-30 14:15 | disposition home or self-care (01) ==
LOC: N.ED 17:57 → N.EDINP 17:57 → N.TELES 20:21
PROVIDERS: ADMIT Internal Medicine Clinical Cardiac Electrophysiology; ATTEND Internal Medicine Clinical Cardiac Electrophysiology

== ENCOUNTER 2018-01-31 23:07 | Observation (INO) ==
[2018-01-31 23:57] LABS: Basophils # 0.1 10*3/uL (0.0-0.2); Basophils % 0.4 % (0.0-0.8); Eosinophils # 0.1 10*3/uL (0.0-0.87); Eosinophils % 0.7 % (0.00-10.9); Hematocrit 51.4 VOL% (42.0-52.0); Hemoglobin 16.8 GM/DL (14.0-18.0); Immature Granulocytes % 0.4 %; Immature Granulocytes Absolute 0.05 #; Lymphocytes # 1.6 10*3/uL (1.4-4.0); Lymphocytes % 13.6 % (21.2-54.2); Mean Corpuscular HGB Conc 32.7 GM/DL (32-36); Mean Corpuscular Hemoglobin 28 PG (27-34); Mean Corpuscular Volume 86.5 FL (87-102); Mean Platelet Volume 10.5 FL (9.6-12.0); Monocytes # 0.7 10*3/uL (0.11-0.8); Neutrophils # 9.5 10*3/uL (1.4-7.4); Neutrophils % 78.9 % (38.7-73.9); Platelet Count 211 T/CUMM (130-400); Red Blood Count 5.94 MC/CUMM (3.8-5.5); Red Cell Distribution Width 15.4 % (9.3-17.3); White Blood Count 12.1 T/CUMM (4-12)
[2018-02-01 00:03] LABS: INR 1.7; PT Patient Result 18.1 SECS; Partial Thromboplastin Time 30.8 SECS (0-40)
[2018-02-01 00:14] LABS: Albumin 4.4 G/DL (3.4-5.0); Bilirubin,Total 1.4 MG/DL (0.2-1.0); Calcium 10.3 MG/DL (8.5-10.1); Osmolality,Calculated 284.3 MOS/KG (273-304); Potassium 4.5 MMOL/L (3.5-5.1); Total Protein 8.4 G/DL (6.4-8.3)
[2018-02-01] MEDS ORDERED: ENOXAPARIN 30 MG/0.3 ML SYRINGE SUBCUT STA (00:53)
[2018-02-01] MEDS ORDERED: MAGNESIUM SULF RIDER 2 GM in PREMIX 1 EACH IV PRN (00:54)
[2018-02-01] MEDS ORDERED: ONDANSETRON 4 MG/2 ML VIAL IV PRN (00:54)
[2018-02-01] MEDS ORDERED: MAGNESIUM SULF RIDER 4 GM in PREMIX 1 EACH IV PRN (00:54)
[2018-02-01] MEDS: DEXTROSE 5% NACL 0.9% 1,000 ML IV SCH ×3 (01:44→17:36)
[2018-02-01] MEDS ORDERED: ENOXAPARIN 80 MG/0.8 ML SYRINGE SUBCUT ONE (01:44)
[2018-02-01 05:10] LABS: Basophils % 0.5 % (0.0-0.8); Eosinophils % 0.2 % (0.00-10.9); Hematocrit 45.9 VOL% (42.0-52.0); Hemoglobin 14.8 GM/DL (14.0-18.0); Immature Granulocytes % 0.4 %; Immature Granulocytes Absolute 0.03 #; Lymphocytes # 1.2 10*3/uL (1.4-4.0); Lymphocytes % 14.9 % (21.2-54.2); Mean Corpuscular HGB Conc 32.2 GM/DL (32-36); Mean Corpuscular Hemoglobin 28 PG (27-34); Mean Corpuscular Volume 86.6 FL (87-102); Mean Platelet Volume 10.7 FL (9.6-12.0); Monocytes # 0.5 10*3/uL (0.11-0.8); Monocytes % 5.7 % (1.7-12.7); Neutrophils # 6.3 10*3/uL (1.4-7.4); Neutrophils % 78.3 % (38.7-73.9); Platelet Count 188 T/CUMM (130-400); Red Cell Distribution Width 15.3 % (9.3-17.3); White Blood Count 8.1 T/CUMM (4-12)
[2018-02-01 05:29] LABS: Albumin 3.7 G/DL (3.4-5.0); Bilirubin,Total 1.2 MG/DL (0.2-1.0); Calcium 9.2 MG/DL (8.5-10.1); Osmolality,Calculated 282.4 MOS/KG (273-304); Potassium 3.9 MMOL/L (3.5-5.1); Total Protein 7.4 G/DL (6.4-8.3)
[2018-02-01 05:30] LABS: Troponin I 0.087 NG/ML (0.00-0.045)
[2018-02-01] MEDS ORDERED: NITROGLYCERIN SL 0.4 MG TABLET SL PRN (07:47)
[2018-02-01] MEDS ORDERED: tiZANidine 4 MG TABLET PO PRN (07:47)
[2018-02-01 07:56] LABS: Troponin I 0.086 NG/ML (0.00-0.045)
[2018-02-01] MEDS ORDERED: CYANOCOBALAMIN 1000 MCG/1 ML VIAL IM SCH (08:00)
[2018-02-01] MEDS ORDERED: EVOLOCUMAB 140 MG SQ SCH (08:00)
[2018-02-01 10:47] LABS: Troponin I 0.079 NG/ML (0.00-0.045)
[2018-02-01] MEDS: TAMSULOSIN 0.4 MG CAPSULE PO SCH ×2 (11:06→21:02)
[2018-02-01] MEDS: SOTALOL 80 MG TABLET PO SCH ×2 (11:06→21:03)
[2018-02-01] MEDS: oxyCODONE/ACETAMINOPHEN 5-325 MG TABLET PO PRN ×2 (11:07→21:07)
[2018-02-01] MEDS: DILTIAZEM CD 240 MG CAPSULE PO SCH ×2 (11:08→21:02)
[2018-02-01] MEDS: PANTOPRAZOLE 40 MG TABLET PO SCH (11:08)
[2018-02-01] MEDS: POLYCARBOPHIL 625 MG TABLET PO SCH ×2 (11:08→21:02)
[2018-02-01] MEDS ORDERED: DIGOXIN 0.125 MG TABLET PO SCH (12:00)
[2018-02-01] MEDS ORDERED: ENOXAPARIN 80 MG/0.8 ML SYRINGE SUBCUT SCH (12:00)
[2018-02-01 12:11] LABS: Hepatitis A Ab IgM Quant 0.26 Index; Hepatitis A Ab IgM Result Negative (Negative); Hepatitis B Core IgM Quant < 0.05 Index; Hepatitis B Core IgM Result Negative (Negative); Hepatitis B Surface Ag Quant 0.19 Index; Hepatitis B Surface Ag Result Negative (Negative); Hepatitis C Virus Ab Quant 0.03 Index; Hepatitis C Virus Ab Result Negative (Negative)
[2018-02-01] MEDS ORDERED: WARFARIN 2.5 MG TABLET PO SCH (18:00)
[2018-02-01] MEDS: CLOPIDOGREL 75 MG TABLET PO SCH (21:02)
[2018-02-01] MEDS: AMITRIPTYLINE 75 MG TABLET PO SCH (21:03)
[2018-02-02] MEDS: DEXTROSE 5% NACL 0.9% 1,000 ML IV SCH ×3 (02:29→18:55)
[2018-02-02 05:16] LABS: Basophils % 0.8 % (0.0-0.8); Eosinophils # 0.2 10*3/uL (0.0-0.87); Eosinophils % 3.4 % (0.00-10.9); Hematocrit 43.9 VOL% (42.0-52.0); Immature Granulocytes % 0.2 %; Immature Granulocytes Absolute 0.01 #; Lymphocytes # 1.6 10*3/uL (1.4-4.0); Lymphocytes % 29.1 % (21.2-54.2); Mean Corpuscular HGB Conc 31.9 GM/DL (32-36); Mean Corpuscular Hemoglobin 28 PG (27-34); Mean Corpuscular Volume 88.9 FL (87-102); Mean Platelet Volume 10.6 FL (9.6-12.0); Monocytes # 0.5 10*3/uL (0.11-0.8); Monocytes % 9.4 % (1.7-12.7); Neutrophils % 57.1 % (38.7-73.9); Platelet Count 163 T/CUMM (130-400); Red Blood Count 4.94 MC/CUMM (3.8-5.5); Red Cell Distribution Width 15.5 % (9.3-17.3); White Blood Count 5.3 T/CUMM (4-12)
[2018-02-02 05:47] LABS: Albumin 3.2 G/DL (3.4-5.0); Bilirubin,Direct 0.21 MG/DL (0.0-0.20); Bilirubin,Indirect 0.7 MG/DL (0.0-1.0); Bilirubin,Total 0.9 MG/DL (0.2-1.0); Calcium 8.5 MG/DL (8.5-10.1); Osmolality,Calculated 278.3 MOS/KG (273-304); Potassium 4.1 MMOL/L (3.5-5.1); Total Protein 6.8 G/DL (6.4-8.3)
[2018-02-02] MEDS: TAMSULOSIN 0.4 MG CAPSULE PO SCH ×2 (09:24→21:08)
[2018-02-02] MEDS: SOTALOL 80 MG TABLET PO SCH ×2 (09:24→21:08)
[2018-02-02] MEDS: DILTIAZEM CD 240 MG CAPSULE PO SCH ×2 (09:24→21:08)
[2018-02-02] MEDS: PANTOPRAZOLE 40 MG TABLET PO SCH (09:25)
[2018-02-02] MEDS: POLYCARBOPHIL 625 MG TABLET PO SCH ×2 (09:25→21:08)
[2018-02-02] MEDS: oxyCODONE/ACETAMINOPHEN 5-325 MG TABLET PO PRN (09:29)
[2018-02-02] MEDS: DIGOXIN 0.125 MG TABLET PO SCH (13:07)
[2018-02-02] MEDS ORDERED: WARFARIN 5 MG TABLET PO SCH (18:00)
[2018-02-02] MEDS: AMITRIPTYLINE 75 MG TABLET PO SCH (21:08)
[2018-02-02] MEDS: CLOPIDOGREL 75 MG TABLET PO SCH (21:08)
[2018-02-03 04:40] LABS: Basophils # 0.1 10*3/uL (0.0-0.2); Basophils % 0.9 % (0.0-0.8); Eosinophils # 0.2 10*3/uL (0.0-0.87); Eosinophils % 2.7 % (0.00-10.9); Hematocrit 44.9 VOL% (42.0-52.0); Hemoglobin 14.5 GM/DL (14.0-18.0); Immature Granulocytes % 0.4 %; Immature Granulocytes Absolute 0.02 #; Lymphocytes # 1.8 10*3/uL (1.4-4.0); Lymphocytes % 32.5 % (21.2-54.2); Mean Corpuscular HGB Conc 32.3 GM/DL (32-36); Mean Corpuscular Hemoglobin 28 PG (27-34); Mean Corpuscular Volume 87.4 FL (87-102); Mean Platelet Volume 10.6 FL (9.6-12.0); Monocytes # 0.5 10*3/uL (0.11-0.8); Monocytes % 9.1 % (1.7-12.7); Neutrophils % 54.4 % (38.7-73.9); Platelet Count 170 T/CUMM (130-400); Red Blood Count 5.14 MC/CUMM (3.8-5.5); Red Cell Distribution Width 15.3 % (9.3-17.3); White Blood Count 5.5 T/CUMM (4-12)
[2018-02-03 04:48] LABS: INR 1.7; PT Patient Result 17.7 SECS
[2018-02-03 04:50] LABS: Calcium 8.8 MG/DL (8.5-10.1); Osmolality,Calculated 278.3 MOS/KG (273-304); Potassium 3.7 MMOL/L (3.5-5.1)
[2018-02-03] MEDS: DEXTROSE 5% NACL 0.9% 1,000 ML IV SCH (06:56)
[2018-02-03] MEDS: PANTOPRAZOLE 40 MG TABLET PO SCH (08:52)
[2018-02-03] MEDS: SOTALOL 80 MG TABLET PO SCH (08:53)
[2018-02-03] MEDS: DILTIAZEM CD 240 MG CAPSULE PO SCH (08:53)
[2018-02-03] MEDS: POLYCARBOPHIL 625 MG TABLET PO SCH (08:53)
[2018-02-03] MEDS: TAMSULOSIN 0.4 MG CAPSULE PO SCH (08:53)
[2018-02-03] MEDS ORDERED: cloNIDine 0.1 MG TABLET PO PRN (10:17)
[2018-02-03] MEDS: DIGOXIN 0.125 MG TABLET PO SCH (14:29)
[2018-02-03 16:16] VITALS: BP 158/75
== END 2018-02-03 17:30 | disposition home or self-care (01) ==
LOC: N.ED 23:07 → N.EDINP 23:07 → N.TELES 02-01 01:21
PROVIDERS: ADMIT Internal Medicine Cardiovascular Disease; ATTEND Internal Medicine Cardiovascular Disease

== ENCOUNTER 2018-02-15 11:10 | Inpatient (IN) ==
[2018-02-15] MEDS ORDERED: HYDROmorphone 2 MG/1 ML VIAL IV STA (13:23)
[2018-02-15] MEDS ORDERED: SODIUM CHLORIDE 0.9% 500 ML IV STA (13:23)
[2018-02-15] MEDS ORDERED: ONDANSETRON 4 MG/2 ML VIAL IV STA (13:23)
[2018-02-15] MEDS ORDERED: ALUM/MAG/SIMETH/LIDO VISC 1:1 30 ML BOTTLE PO STA (13:23)
[2018-02-15] MEDS ORDERED: PANTOPRAZOLE 40 MG VIAL IV STA (13:23)
[2018-02-15 13:58] LABS: Basophils # 0.1 10*3/uL (0.0-0.2); Basophils % 0.5 % (0.0-0.8); Eosinophils % 0.3 % (0.00-10.9); Hematocrit 53.4 VOL% (42.0-52.0); Hemoglobin 17.8 GM/DL (14.0-18.0); Immature Granulocytes % 0.4 %; Immature Granulocytes Absolute 0.06 #; Lymphocytes % 6.9 % (21.2-54.2); Mean Corpuscular HGB Conc 33.3 GM/DL (32-36); Mean Corpuscular Hemoglobin 29 PG (27-34); Mean Corpuscular Volume 86.3 FL (87-102); Mean Platelet Volume 11.1 FL (9.6-12.0); Monocytes # 0.7 10*3/uL (0.11-0.8); Monocytes % 5.4 % (1.7-12.7); Neutrophils # 11.8 10*3/uL (1.4-7.4); Neutrophils % 86.5 % (38.7-73.9); Platelet Count 207 T/CUMM (130-400); Red Blood Count 6.19 MC/CUMM (3.8-5.5); White Blood Count 13.7 T/CUMM (4-12)
[2018-02-15 14:10] LABS: Albumin 4.2 G/DL (3.4-5.0); Bilirubin,Total 0.7 MG/DL (0.2-1.0); Calcium 10.6 MG/DL (8.5-10.1); Osmolality,Calculated 277.4 MOS/KG (273-304); Potassium 4.9 MMOL/L (3.5-5.1); Total Protein 8.3 G/DL (6.4-8.3)
[2018-02-15 14:59] LABS: Apearance,Urine CLEAR (Clear); Bilirubin,Urine Negative (Negative); Blood, Urine Negative (Negative); Glucose,Urine (UA) Negative (Negative); Ketones,Urine Negative (Negative); Mucus,Urine Occasional /LPF (Occasional); Nitrite,Urine Negative (Negative); Protein,Urine Negative; RBC,Urine <1 /HPF (0-4); Urine Color Yellow (Yellow); Urine Specific Gravity 1.008 (1.001-1.035); Urine Urobilinogen < 2.0 EU/DL (0.2-1.0); WBC,Urine <1 /HPF (0-6)
[2018-02-15] MEDS ORDERED: ONDANSETRON 4 MG/2 ML VIAL IV PRN (16:03)
[2018-02-15] MEDS ORDERED: NITROGLYCERIN SL 0.4 MG TABLET SL PRN (16:07)
[2018-02-15] MEDS ORDERED: oxyCODONE/ACETAMINOPHEN 5-325 MG TABLET PO PRN (16:07)
[2018-02-15 16:14] LABS: INR 2.8
[2018-02-15 16:16] LABS: PT Patient Result 28.1 SECS
[2018-02-15] MEDS: HYDROmorphone 2 MG/1 ML VIAL IV PRN ×2 (16:37→23:08)
[2018-02-15] MEDS: SODIUM CHLORIDE 0.9% 1,000 ML IV SCH (18:09)
[2018-02-15] MEDS: TAMSULOSIN 0.4 MG CAPSULE PO SCH (22:09)
[2018-02-15] MEDS: POLYCARBOPHIL 625 MG TABLET PO SCH (22:10)
[2018-02-15] MEDS: AMITRIPTYLINE 75 MG TABLET PO SCH (22:12)
[2018-02-15] MEDS: SOTALOL 80 MG TABLET PO SCH (22:12)
[2018-02-16 05:40] LABS: Basophils % 0.3 % (0.0-0.8); Eosinophils # 0.1 10*3/uL (0.0-0.87); Eosinophils % 0.7 % (0.00-10.9); Hematocrit 45.6 VOL% (42.0-52.0); Immature Granulocytes % 0.3 %; Immature Granulocytes Absolute 0.03 #; Lymphocytes # 1.7 10*3/uL (1.4-4.0); Lymphocytes % 15.9 % (21.2-54.2); Mean Corpuscular HGB Conc 32.2 GM/DL (32-36); Mean Corpuscular Hemoglobin 29 PG (27-34); Mean Corpuscular Volume 88.4 FL (87-102); Mean Platelet Volume 10.9 FL (9.6-12.0); Monocytes # 0.7 10*3/uL (0.11-0.8); Monocytes % 6.6 % (1.7-12.7); Neutrophils # 8.2 10*3/uL (1.4-7.4); Neutrophils % 76.2 % (38.7-73.9); Platelet Count 166 T/CUMM (130-400); Red Blood Count 5.16 MC/CUMM (3.8-5.5); White Blood Count 10.7 T/CUMM (4-12)
[2018-02-16 05:57] LABS: Hemoglobin 14.7 GM/DL (14.0-18.0)
[2018-02-16 06:06] LABS: Calcium 8.5 MG/DL (8.5-10.1); Osmolality,Calculated 270.8 MOS/KG (273-304); Potassium 4.5 MMOL/L (3.5-5.1); Risk Ratio 2.66; Thyroid Stimulating Hormone 1.34 uIU/ml (0.358-3.74)
[2018-02-16] MEDS: SODIUM CHLORIDE 0.9% 1,000 ML IV SCH ×2 (07:36→21:05)
[2018-02-16] MEDS: PANTOPRAZOLE 40 MG TABLET PO SCH (08:14)
[2018-02-16] MEDS: POLYCARBOPHIL 625 MG TABLET PO SCH ×2 (08:14→21:05)
[2018-02-16] MEDS: TAMSULOSIN 0.4 MG CAPSULE PO SCH ×2 (08:14→21:05)
[2018-02-16] MEDS: ENOXAPARIN 40 MG/0.4 ML SYRINGE SUBCUT SCH (08:15)
[2018-02-16] MEDS: SOTALOL 80 MG TABLET PO SCH ×2 (11:27→21:05)
[2018-02-16] MEDS: HYDROmorphone 2 MG/1 ML VIAL IV PRN (11:31)
[2018-02-16] MEDS: DIGOXIN 0.125 MG TABLET PO SCH (15:23)
[2018-02-16] MEDS: AMITRIPTYLINE 75 MG TABLET PO SCH (21:05)
[2018-02-17 05:25] LABS: Basophils % 0.5 % (0.0-0.8); Eosinophils # 0.1 10*3/uL (0.0-0.87); Eosinophils % 1.4 % (0.00-10.9); Hematocrit 40.1 VOL% (42.0-52.0); Hemoglobin 12.9 GM/DL (14.0-18.0); Immature Granulocytes % 0.3 %; Immature Granulocytes Absolute 0.03 #; Lymphocytes # 1.4 10*3/uL (1.4-4.0); Lymphocytes % 15.9 % (21.2-54.2); Mean Corpuscular HGB Conc 32.2 GM/DL (32-36); Mean Corpuscular Hemoglobin 28 PG (27-34); Mean Corpuscular Volume 87.9 FL (87-102); Monocytes # 0.8 10*3/uL (0.11-0.8); Monocytes % 9.7 % (1.7-12.7); Neutrophils # 6.3 10*3/uL (1.4-7.4); Neutrophils % 72.2 % (38.7-73.9); Platelet Count 138 T/CUMM (130-400); Red Blood Count 4.56 MC/CUMM (3.8-5.5); Red Cell Distribution Width 16.1 % (9.3-17.3); White Blood Count 8.7 T/CUMM (4-12)
[2018-02-17 06:13] LABS: Calcium 8.1 MG/DL (8.5-10.1); Osmolality,Calculated 272.5 MOS/KG (273-304); Potassium 3.8 MMOL/L (3.5-5.1)
[2018-02-17] MEDS: PANTOPRAZOLE 40 MG TABLET PO SCH (09:08)
[2018-02-17] MEDS: TAMSULOSIN 0.4 MG CAPSULE PO SCH (09:08)
[2018-02-17] MEDS: POLYCARBOPHIL 625 MG TABLET PO SCH (09:08)
[2018-02-17] MEDS: SOTALOL 80 MG TABLET PO SCH (09:08)
[2018-02-17] MEDS: ENOXAPARIN 40 MG/0.4 ML SYRINGE SUBCUT SCH (09:09)
[2018-02-17] MEDS: SODIUM CHLORIDE 0.9% 1,000 ML IV SCH ×2 (09:12→11:27)
[2018-02-17] MEDS: DIGOXIN 0.125 MG TABLET PO SCH (13:29)
[2018-02-17 17:10] VITALS: BP 136/82
== END 2018-02-17 18:20 | disposition home or self-care (01) | DRG 440 ==
LOC: N.ED 11:10 → N.EDINP 15:54 → N.3E 16:38
PROVIDERS: ADMIT Internal Medicine Geriatric Medicine; ATTEND Internal Medicine Geriatric Medicine